=== PATIENT | female | born 1975 | race Caucasian/White ===

== ENCOUNTER 2016-09-24 13:43 | Emergency (ER) | payer MEDICAID ==
[~2016-09-24] VITALS: Ht 162.6 cm; Wt 82.0 kg
[~2016-09-24 13:43] MED LIST: ACET-141 PO; ACET325T33 PO; CIPR500T4 PO; DOCU-144 PO; HC30CR25 TOP; HYDR25SU24 PR; IBUP-1542 PO; LORA10TA3 PO; POLY17PO6 PO
[2016-09-24 13:45] VITALS: Ht 162.6 cm; Wt 82.0 kg
[2016-09-24] MEDS ORDERED: HYDROCODONE/APAP (5/325) TAB PO ONE (15:00)
--- NOTE | 2016-09-24 15:55 | RADRPT ---
PROCEDURE: XR Shoulder. CLINICAL INDICATION: Right shoulder pain TECHNIQUE: Two views of the right shoulder are available for review. COMPARISON: None available FINDINGS: There is normal mineralization and alignment of the bones of the right shoulder. No acute fracture or dislocation is identified. The glenohumeral joint is within normal limits. The acromioclavicular joint is intact. The visualized portions of the right chest wall are grossly unremarkable. The sof t tissues are within normal limits. IMPRESSION: 1. Unremarkable right shoulder series. RPTAT: KK .Tobi Chong MD, Date Time Electronically viewed and signed by .Tobi Chong MD, on 09/24/2016 15:55 .B/
--- NOTE | 2016-09-24 15:56 | RADRPT ---
PROCEDURE: Forearm radiograph series. CLINICAL INDICATION: Right forearm pain after trauma TECHNIQUE: AP and lateral views of the right forearm were obtained. COMPARISON: No prior studies are available for comparison. FINDINGS: Incidental note is made of negative ulnar variance. There is otherwise normal mineralization and al ignment of the bones of the right forearm. There is no evidence of acute fracture or dislocation. Suboptimally visualized joints appear within normal limits. The soft tissues are unremarkable. IMPRESSION: 1. No evidence of acute fracture or dislocation. 2. Incidental note made of negative ulnar variance. RPTAT: KK .Tobi Chong MD, MD Date Time Electronically viewed and signed by .Tobi Chong MD, on 09/24/2016 15:56 .B/
--- NOTE | 2016-09-24 15:58 | RADRPT ---
PROCEDURE: XR Elbow. CLINICAL INDICATION: Right elbow pain TECHNIQUE: Three views of the right elbow are available for review COMPARISON: None available FINDINGS: There is normal mineralization and alignment of the bones of the elbow. Study is somewhat limited. There is suggestion of mild elevation of the anterior posterior fat pads. There is no other eviden ce of acute fracture or dislocation. Radial head appears intact IMPRESSION: 1. Questionable joint effusion without other evidence of acute fracture or dislocation. If there i s high clinical suspicion for fracture, CT should be obtained. Alternatively, conservative manageme nt with interval follow-up is appropriate. RPTAT: KK .Tobi Chong MD, Date Time Electronically viewed and signed by .Tobi Chong MD, on 09/24/2016 15:58 .B/
[2016-09-24] MEDS ORDERED: HYDR-906 PO (16:10)
--- NOTE | 2016-09-24 16:21 | ERD ---
ER Documentation Chief Complaint Date/Time DATE: 09/24/16 TIME: 16:17 Chief Complaint s/p fall has right elbow pain HPI This is a 41-year-old female presents to the ER with right elbow pain after she fell onto her right elbow. Patient tripped and fell and landed on her right elbow and forearm. Patient is complaining of severe right elbow pain and swelling. She denies any numbness or tingling of her upper extremity. Patient did not hit her head while she fell. She does not have any nausea or vomiting. He should try taking ibuprofen for the pain however pain still continues, pain radiates throughout her entire arm. ROS 12 point review of systems was done, all negative except per HPI. Medications Home Meds Active Scripts Hydrocodone/Acetaminophen ([place] 5-325 Tablet) 1 Each Tablet, 1 TAB PO Q6H Y for PAIN, #10 TAB Prov:DARIO DEVI 09/24/16 Acetaminophen* (Acetaminophen*) 500 MG Extra Strength Tablet, 500 MG PO Q4H Y for PAIN AND OR ELEVATED TEMP, #20 TAB Prov:AISSATOU GUSTAFSON PA-C 09/27/15 Acetaminophen* (Tylenol*) 325 Mg Tablet, 1 TAB PO Q8 Y for PAIN AND OR ELEVATED TEMP, #20 TAB Prov:AISSATOU GUSTAFSON PA-C 09/27/15 Ibuprofen* (Motrin*) 600 Mg Tab, 600 MG PO Q6, #20 TAB Prov:AISSATOU GUSTAFSON PA-C 09/27/15 Ciprofloxacin Hcl* (Ciprofloxacin Hcl*) 500 Mg Tablet, 500 MG PO BID for 7 Days , TAB Prov:JEAN MARIE BOYD NP 07/22/15 Polyethylene Glycol* (Miralax*) 17 Gm Powd.pack, 17 GM PO DAILY, #7 Prov:JEAN MARIE BOYD NP 07/22/15 Docusate Sodium* (Colace*) 100 Mg Capsule, 100 MG PO TID, #30 CAP Prov:JEAN MARIE BOYD NP 07/22/15 Hydrocortisone Acetate* (Anusol-HC*) 25 Mg/Supp.rect Supp.rect, 1 SUPP W[place] HS, # 12 SUPP.RECT Prov:JEAN MARIE BOYD NP 07/22/15 Hydrocortisone* Topical (Hydrocortisone* Topical) 2.5%-28.3 Gm Cream..g., 1 APPLIC TOP BID, #3 TUB 0 Refills Prov:ABBENEGRO SAENZ 06/25/15 Loratadine* (Loratadine*) 10 Mg Tablet, 10 MG PO DAILY, #30 TAB 0 Refills Prov:ABBENEGRO LETTY 06/25/15 Allergies Allergies: Coded Allergies: Penicillins (Verified Allergy, Intermediate, 09/24/16) CHEST PAIN, ITCHING PMhx/Soc History of Surgery: Yes () Anesthesia Reaction: No Hx Neurological Disorder: No Hx Respiratory Disorders: No Hx Cardiac Disorders: No Hx Psychiatric Problems: No Hx Miscellaneous Medical Probl: No Hx Alcohol Use: No Hx Substance Use: No Hx Tobacco Use: No Smoking Status: Never smoker Physical Exam Vitals Vital Signs Date Time Temp Pulse Resp B/P Pulse Ox O2 Delivery O2 Flow Rate FiO2 09/24/16 13:45 98.1 90 18 138/78 99 Physical Exam GENERAL: The patient is well developed and appropriate for usual state of health , in no apparent distress. HEENT: Atraumatic. CHEST: Clear to auscultation bilaterally. There are no rales, wheezes or rhonchi. HEART: Regular rate and rhythm. No murmurs, clicks, rubs or gallops. EXTREMITIES: Right elbow: Patient has elbow flexed in position, limited range of motion of elbow extension. Some swelling is seen tender to palpation along the olecranon. Slight tenderness to palpation along the proximal forearm. Patient has full range of motion of the wrist, no snuffbox tenderness. Radial ulnar and medial nerves are intact. Normal strength and sensation. NEURO: Alert and oriented SKIN: There is no apparent rash or petechia. The skin is warm and dry. Results 24 hrs Current Medications Medications (Trade) Dose Ordered Sig/Shantell Route PRN Reason Start Time Stop Time Status Last Admin Dose Admin Acetaminophen/ Hydrocodone Bitart ([place] (5/325)) 1 tab ONCE ONCE PO 09/24/16 15:00 09/24/16 15:01 DC 09/24/16 15:03 Procedures/MDM This is a 41-year-old female presents to the ER with right elbow pain. There is no evidence of fracture dislocation on x-rays, however radiologist mentions that there is slight raising of the anterior and posterior fat pads because of this patient was put in a long arm splint she was also given a sling. She is neurovascularly intact before and after splint application. Patient will be sent home with [place]. She is to follow-up with her primary care doctor within 1 -2 days or return to ER sooner if symptoms worsen. My medical decision making was shared with the patient she understands and agrees with plan. I discussed with patient the possibility of there being an occult fracture, patient should urgently follow up with PCP regarding pain and improvement of this injury. Patient understood and agreed with plan. Departure Diagnosis: Primary Impression: Elbow pain Condition: Stable Patient Instructions: Sprain Elbow Referrals: [facility] YOU HAVE RECEIVED A MEDICAL SCREENING EXAM AND THE RESULTS INDICATE THAT YOU DO NOT HAVE A CONDITION THAT REQUIRES URGENT TREATMENT IN THE EMERGENCY DEPARTMENT. FURTHER EVALUATION AND TREATMENT OF YOUR CONDITION CAN WAIT UNTIL YOU ARE SEEN IN YOUR DOCTORS OFFICE WITHIN THE NEXT 1-2 DAYS. IT IS YOUR RESPONSIBILITY TO MAKE AN APPOINTMENT FOR FOLOW-UP CARE. IF YOU HAVE A PRIMARY DOCTOR --you should call your primary doctor and schedule an appointment IF YOU DO NOT HAVE A PRIMARY DOCTOR YOU CAN CALL OUR PHYSICIAN REFERRAL HOTLINE AT IF YOU CAN NOT AFFORD TO SEE A PHYSICIAN YOU CAN CHOSE FROM THE FOLLOWING [facility] [address] [facility]. [facility] [address] [facility]. [facility] [address] [facility] [address] [facility] [address]. [facility]. [address] [facility]. [facility] YOU HAVE RECEIVED A MEDICAL SCREENING EXAM AND THE RESULTS INDICATE THAT YOU DO NOT HAVE A CONDITION THAT REQUIRES URGENT TREATMENT IN THE EMERGENCY DEPARTMENT. FURTHER EVALUATION AND TREATMENT OF YOUR CONDITION CAN WAIT UNTIL YOU ARE SEEN IN YOUR DOCTORS OFFICE WITHIN THE NEXT 1-2 DAYS. IT IS YOUR RESPONSIBILITY TO MAKE AN APPOINTMENT FOR FOLOW-UP CARE. IF YOU HAVE A PRIMARY DOCTOR --you should call your primary doctor and schedule and appointment IF YOU DO NOT HAVE A PRIMARY DOCTOR YOU CAN CALL OUR PHYSICIAN REFERRAL HOTLINE AT . IF YOU CAN NOT AFFORD TO SEE A PHYSICIAN YOU CAN CHOSE FROM THE FOLLOWING [facility] INSTITUTIONS: [facility] [address] [place] [address] [facility] [address] [place] [address] [facility] [address] [place] [address] Additional Instructions: Llame al doctor MAANA y ivone franklyn PAWEL PARA DENTRO DE 1-2 BASS.Dgale a la secretaria que nosotros le instruimos hacer esta pawel.Avise o llame si washburn condicin se empeora antes de la pawel. Regresa aqui si peor o no mejor. DARIO DEVI September 24, 2016 16:21
== END 2016-09-24 16:50 | disposition home or self-care (01) ==
LOC: FTE 13:43
DX: M25.521 Pain in right elbow (principal)
CPT/HCPCS: 73030; 73080; 73090; Z7610

== ENCOUNTER 2017-03-14 13:04 | Emergency (ER) | payer MEDICAID ==
[~2017-03-14] VITALS: Wt 68.0 kg
[~2017-03-14 13:04] MED LIST changes: +HYDR-906 PO
[2017-03-14] MEDS ORDERED: DIPHENHYDRAMINE 50 MG CAP PO ONE (14:00)
[2017-03-14] MEDS ORDERED: DEXAMETHASONE 4 MG TAB PO ONE (14:00)
[2017-03-14] MEDS ORDERED: BEN50 PO (14:17)
--- NOTE | 2017-03-14 14:46 | ERD ---
ER Documentation Chief Complaint Chief Complaint LEFT SIDE EYE PAIN AND SWELLING. NO TRAUMA. NO DRAINAGE. HPI 41-year-old female complaining of left eye itching and swelling. Patient says she woke up at 12:30 AM from sleep and noticed intense itch in her left upper eyelid. And her eyelid become swollen. She still reports itching in the right side of her face as well. Denies eye pain or discharge. Denies shortness of breath. Denies exposure to new foods or new cleaning products. Patient thinks that she got a insect bite. ROS All systems reviewed and are negative except as per history of present illness. Medications Home Meds Active Scripts Diphenhydramine Hcl* (Benadryl*) 50 Mg Cap, 50 MG PO Q6H Y for ITCHING/RASH, # 30 CAP Prov:ADOLFO CHEATHAM RENTAL REPRESENTATIVE 03/14/17 Hydrocodone/Acetaminophen ([place] 5-325 Tablet) 1 Each Tablet, 1 TAB PO Q6H Y for PAIN, #10 TAB Prov:DARIO DEVI 09/24/16 Acetaminophen* (Acetaminophen*) 500 MG Extra Strength Tablet, 500 MG PO Q4H Y for PAIN AND OR ELEVATED TEMP, #20 TAB Prov:AISSATOU GUSTAFSON PA-C 09/27/15 Acetaminophen* (Tylenol*) 325 Mg Tablet, 1 TAB PO Q8 Y for PAIN AND OR ELEVATED TEMP, #20 TAB Prov:AISSATOU GUSTAFSON PA-C 09/27/15 Ibuprofen* (Motrin*) 600 Mg Tab, 600 MG PO Q6, #20 TAB Prov:AISSATOU GUSTAFSON PA-C 16 Ciprofloxacin Hcl* (Ciprofloxacin Hcl*) 500 Mg Tablet, 500 MG PO BID for 7 Days , TAB Prov:JEAN MARIE BOYD NP 07/22/15 Polyethylene Glycol* (Miralax*) 17 Gm Powd.pack, 17 GM PO DAILY, #7 Prov:JEAN MARIE BOYD NP 07/22/15 Docusate Sodium* (Colace*) 100 Mg Capsule, 100 MG PO TID, #30 CAP Prov:JEAN MARIE BOYD NP 07/22/15 Hydrocortisone Acetate* (Anusol-HC*) 25 Mg/Supp.rect Supp.rect, 1 SUPP VT HS, # 12 SUPP.RECT Prov:JEAN MARIE BOYD AGUILERA TNeo LÓPEZ 07/22/15 Hydrocortisone* Topical (Hydrocortisone* Topical) 2.5%-28.3 Gm Cream..g., 1 APPLIC TOP BID, #3 TUB 0 Refills Prov:NEGRO MCADAMS PA-C 06/25/15 Loratadine* (Loratadine*) 10 Mg Tablet, 10 MG PO DAILY, #30 TAB 0 Refills Prov:NEGRO MCADAMS PA-C 06/25/15 Allergies Allergies: Coded Allergies: Penicillins (Verified Allergy, Intermediate, 09/24/16) CHEST PAIN, ITCHING PMhx/Soc History of Surgery: No Anesthesia Reaction: No Hx Neurological Disorder: No Hx Respiratory Disorders: No Hx Cardiac Disorders: No Hx Psychiatric Problems: No Hx Miscellaneous Medical Probl: No Hx Alcohol Use: No Hx Substance Use: No Hx Tobacco Use: No Smoking Status: Never smoker Physical Exam Vitals Vital Signs Date Time Temp Pulse Resp B/P Pulse Ox O2 Delivery O2 Flow Rate FiO2 03/14/17 13:08 99.0 91 21 113/61 98 Physical Exam General: Well-developed, well-nourished, conscious and coherent, in no distress Skin: Warm and dry without rash, good texture and turgor Head: Normocephalic without evidence of trauma Eyes: Sclera and conjunctivae normal; pupils equal, round, and reactive to light; extraocular movements are intact. Left upper eyelid swollen and puffy, not indurated. Chest: Normal AP diameter. Good expansion without retractions. Nontender. Lungs are clear to auscultate bilaterally with good tidal volume Heart: Regular rate and rhythm. No murmur, rub, or gallops heard Extremities: Full range of motion. Good strength bilaterally. No clubbing, cyanosis, or edema. Peripheral pulses are intact. Sensation intact Neuro: Alert and oriented 4, GCS 15. Cranial nerves grossly intact. Motor and sensory exams nonfocal. Moves all extremities. Speech clear. Gait normal Results 24 hrs Current Medications Medications (Trade) Dose Ordered Sig/Shantell Route PRN Reason Start Time Stop Time Status Last Admin Dose Admin Diphenhydramine HCl (Benadryl) 50 mg ONCE ONCE PO 03/14/17 14:00 03/14/17 14:01 DC 10/28/17 13:51 Dexamethasone (Decadron) 8 mg ONCE ONCE PO 03/14/17 14:00 03/14/17 14:01 DC 03/14/17 14:08 Procedures/MDM Well-appearing 41-year-old female presented ED with swollen left upper eyelid 1 day. Patient's history and exam findings are consistent with insect bite with large local reaction. No sign of anaphylaxis. I doubt contact dermatitis. I doubt periorbital or orbital cellulitis. She was given dexamethasone and Benadryl p.o. in the ED. Her symptoms improved slightly after the medications. Patient appears well, stable for discharge and outpatient management. Medical decision making shared with patient and family. Education provided to patient and family. Patient and family expressed understanding of the plan. Medications on discharge: Benadryl. Follow-up: Primary care provider in 2-3 days or return to ED if worse. Disclaimer: Inadvertent spelling and grammatical errors are likely due to EHR/ dictation software use and do not reflect on the overall quality of patient care. Also, please note that the electronic time recorded on this note does not necessarily reflect the actual time of the patient encounter. Departure Diagnosis: Primary Impression: Insect bite Encounter type: initial encounter Qualified Code: W57.XXXA - Insect bite, initial encounter Condition: Stable Patient Instructions: Insect Bite [facility]: [facility] Usted se verdugo hecho un examen mdico de control que le indica que no est en franklyn condicin que requiera tratamiento urgente en el Departamento de Emergencia. Un estudio ms profundo y el tratamiento de washburn condicin pueden esperar sin ningn riesgo hasta que usted sea atendida/o en el consultorio de washburn mdico o franklyn cl myrtle. Es responsabilidad suya arreglar franklyn pawel para el seguimiento del colt. MANEJO DE CONDICIONES NO URGENTES EN EL FUTURO 1) Si usted tiene un mdico de atencin primaria: Usted debera llamar a washburn mdico de atencin primaria antes de venir al departamento de emergencia. Despus de las horas de consultorio, washburn doctor o washburn asociado/a est disponible por telfono. El mdico o enfermero de rafael en el servicio telefnico puede asesorarle por vin medio para atender el problema, o colt contrario se puede programar franklyn pawel. 2) Si usted no tiene un mdico de atencin primaria: Llame al mdico o clnica de referencia que aparece abajo lester las horas de consultorio para hacer franklyn pawel para que le vean. CLINICAS: [facility] [phone] [facility] [phone] [facility] [phone] [place] [address] [phone] [place] [phone] [facility] [phone] [address] Additional Instructions: Llame al doctor MAANA y ivone franklyn PAWEL PARA DENTRO DE 2-3 BASS.Dgale a la secretaria que nosotros le instruimos hacer esta pawel.Avise o llame si washburn condicin se empeora antes de la pawel. Regresa aqui si peor o no mejor. ADOLFO CHEATHAM NP Mar 14, 2017 14:46
== END 2017-03-14 15:06 | disposition home or self-care (01) ==
LOC: FTE 13:04
DX: S00.262A Insect bite (nonvenomous) of left eyelid and periocular area, initial encounter (principal); W57.XXXA Bitten or stung by nonvenomous insect and other nonvenomous arthropods, initial encounter; Y92.9 Unspecified place or not applicable
CPT/HCPCS: Z7610 ×2; 99283

== ENCOUNTER 2017-06-08 14:51 | Emergency (ER) | END 2017-06-08 19:54 | disposition left against medical advice (07) ==

== ENCOUNTER 2017-08-21 11:49 | Emergency (ER) | END 2017-08-21 14:38 | disposition home or self-care (01) ==

== ENCOUNTER 2017-10-20 09:05 | Emergency (ER) | END 2017-10-20 11:40 | disposition home or self-care (01) ==

== ENCOUNTER 2018-07-23 19:03 | Emergency (ER) | payer MEDICAID ==
[~2018-07-23] VITALS: Ht 152.4 cm; Wt 71.3 kg
[~2018-07-23 19:03] MED LIST changes: +BACL10TA PO; +BEN50 PO; +CEPH-443 PO; +CHOL400T10 PO; +HYDR-4011 PO; -HYDR-906 PO; +IBUP-1541 PO
[2018-07-23 19:12] VITALS: Ht 152.4 cm; Wt 71.3 kg
--- NOTE | 2018-07-23 22:25 | ERD ---
ER Documentation Chief Complaint Chief Complaint anxiety HPI The patient is a 43-year-old female, presenting to the ER because she became very anxious, hyperventilating after she had an argument with her 12 years old daughter. She felt much better now, denies suicidal/homicidal ideation, visual/auditory hallucination. He denies headache, neck pain, chest pain, dyspnea, abdominal pain, vomiting, dysuria. She does not smoke nor drink, has i ncreased stress Past medical history: Anxiety Past surgical history: ROS All systems reviewed and are negative except as per history of present illness. Medications Home Meds Active Scripts Cephalexin* (Keflex*) 500 Mg Capsule, 500 MG PO BID for 7 Days, CAP Prov:ALINA EGAN MD 10/20/17 Ibuprofen* (Ibuprofen*) 400 Mg Tablet, 400 MG PO Q8 PRN for PAIN, #14 TAB Prov:DAVION NUNES MD 08/21/17 Baclofen* (Baclofen*) 10 Mg Tablet, 10 MG PO TID for MUSCLE SPASMS for 5 Days, #3 TAB Prov:DAVION NUNES MD 08/21/17 Cholecalciferol* (Vitamin D*) 400 Unit Tablet, 800 UNIT PO weekly for 4 Days, #4 TAB Prov:DAVION NUNES MD 08/21/17 Diphenhydramine Hcl* (Benadryl*) 50 Mg Cap, 50 MG PO Q6H PRN for ITCHING/RASH, #30 CAP Prov:ADOLFO CHEATHAM NP 03/14/17 Hydrocodone/Acetaminophen ([place] 5-325 Tablet) 1 Each Tablet, 1 TAB PO Q6H PRN for PAIN, #10 TAB Prov:DARIO DEVI 09/24/16 Acetaminophen* (Acetaminophen*) 500 MG Extra Strength Tablet, 500 MG PO Q4H PRN for PAIN AND OR ELEVATED TEMP, #20 TAB Prov:AISSATOU GUSTAFSON PA-C 09/27/15 Acetaminophen* (Tylenol*) 325 Mg Tablet, 1 TAB PO Q8 PRN for PAIN AND OR ELEVATED TEMP, #20 TAB Prov:AISSATOU GUSTAFSON PA-C 09/27/15 Ibuprofen* (Motrin*) 600 Mg Tab, 600 MG PO Q6, #20 TAB Prov:AISSATOU GUSTAFSON PA-C 09/27/15 Ciprofloxacin Hcl* (Ciprofloxacin Hcl*) 500 Mg Tablet, 500 MG PO BID for 7 Days, TAB Prov:JEAN MARIE BOYD NP 07/22/15 Polyethylene Glycol* (Miralax*) 17 Gm Powd.pack, 17 GM PO DAILY, #7 Prov:JEAN MARIE BOYD NP 07/22/15 Docusate Sodium* (Colace*) 100 Mg Capsule, 100 MG PO TID, #30 CAP Prov:JEAN MARIE BOYD NP 07/22/15 Hydrocortisone Acetate* (Anusol-HC*) 25 Mg/Supp.rect Supp.rect, 1 SUPP VT HS, #12 SUPP.RECT Prov:JEAN MARIE BOYD NP 07/22/15 Hydrocortisone* Topical (Hydrocortisone* Topical) 2.5%-28.3 Gm Cream..g., 1 APPLIC TOP BID, #3 TUB 0 Refills Prov:NEGRO MCADAMS PA-C 06/25/15 Loratadine* (Loratadine*) 10 Mg Tablet, 10 MG PO DAILY, #30 TAB 0 Refills Prov:NEGRO MCADAMS PA-C 06/25/15 Allergies Allergies: Coded Allergies: Penicillins (Verified Allergy, Intermediate, 09/24/16) CHEST PAIN, ITCHING PMhx/Soc History of Surgery: No Anesthesia Reaction: No Hx Neurological Disorder: No Hx Respiratory Disorders: No Hx Cardiac Disorders: No Hx Psychiatric Problems: No Hx Miscellaneous Medical Probl: No Hx Alcohol Use: No Hx Substance Use: No Hx Tobacco Use: No Physical Exam Vitals Vital Signs Date Temp Pulse Resp B/P (MAP) Pulse Ox O2 O2 Flow FiO2 Time Delivery Rate 07/23/18 65 16 104/65 98 Room Air 22:31 (78) 07/23/18 97.0 89 28 123/63 100 19:12 (83) Physical Exam Const: No acute distress. Head: Atraumatic. Eyes: Normal Conjunctiva. ENT: Normal External Ears, Nose and Mouth. Neck: Full range of motion. No meningismus. Resp: Clear to auscultation bilaterally. Cardio: Regular rate and rhythm. Abd: Soft, non distended, normal bowel sounds, non tender. Skin: No petechiae or rashes. Back: No midline or flank tenderness. Ext: No cyanosis, or edema. Neur: Awake and alert. No focal deficit Psych: Anxious Results 24 hrs Current Medications Medications Dose Sig/Shantell Start Time Status Last (Trade) Ordered Route PRN Stop Time Admin Dose Reason Admin Alprazolam 0.25 mg ONCE ONCE 07/23/18 (Xanax) PO 23:30 07/23/18 23:31 Procedures/MDM EKG: Read by emergency physician Rate/Rhythm: Normal Sinus Rhythm 73 beats/min QRS, ST, T-waves: No ST elevation, no T inversion, nonspecific T abnormality Impression: Abnormal EKG MEDICAL MAKING DECISION: The patient is a 42-year-old male, presenting with acute anxiety attack, was treated with Xanax 0.25 mg po good response, is stable for outpatient follow-up The differential diagnoses considered include but are not limited to anxiety attack, panic attack, stress Departure Diagnosis: Primary Impression: Anxiety attack Condition: Good Comments I discussed the findings with the patient. I advised the patient to follow-up with the primary physician in about 2-3 days, sooner if needed and return if any concern. Disclaimer: Inadvertent spelling and grammatical errors are likely due to EHR/dictation software use and do not reflect on the overall quality of patient care. Also, please note that the electronic time recorded on this note does not necessarily reflect the actual time of the patient encounter. MAUREEN LACY MD Jul 23, 2018 22:25
[2018-07-23] MEDS ORDERED: ALPRAZOLAM 0.25 MG TAB PO ONE (23:30)
[2018-07-24 00:16] VITALS: BP 118/70; PULSE 69; RESP 16
== END 2018-07-24 00:17 | disposition home or self-care (01) ==
LOC: E/R 19:03
DX: F41.9 Anxiety disorder, unspecified (principal); R40.2142 Coma scale, eyes open, spontaneous, at arrival to emergency department; R40.2362 Coma scale, best motor response, obeys commands, at arrival to emergency department; R40.2252 Coma scale, best verbal response, oriented, at arrival to emergency department; R07.9 Chest pain, unspecified
CPT/HCPCS: 93005; Z7502; Z7610; 99283